=== PATIENT | male | born 1985 | race Hispanic/Latino ===

== ENCOUNTER 2021-12-12 11:33 | Emergency (ER) | payer SELFPAY ==
[~2021-12-12] VITALS: Ht 157.5 cm; Wt 86.0 kg
[2021-12-12 13:10] VITALS: BP 142/86
[2021-12-12] MEDS ORDERED: COLACE100 MG PO (13:43)
== END 2021-12-12 13:55 | disposition home or self-care (01) | DRG 395 ==
LOC: ED 11:33
DX: K60.2 Anal fissure, unspecified (principal)